=== PATIENT | female | born 1980 | race Two or more races ===

== ENCOUNTER 2018-12-01 12:30 | Emergency (ER) | payer MEDICAID ==
[~2018-12-01] VITALS: Ht 162.6 cm; Wt 86.2 kg
[2018-12-01 12:35] VITALS: BP 139/94
--- NOTE | 2018-12-01 12:43 | NUR ---
ED Nurse Note: Patient walked into ED c/o abdominal pain nausea and vomiting for 2weeks. patient reports her first day of her last mestrual period was September 23. She did urine test at home with positive result a weeek ago. patient reports . patient has twins and a daughter. patient is ambulatory steady gait, a/o x4, breathing unlabored and even. Patient placed in hospital gown.
--- NOTE | 2018-12-01 12:55 | NUR ---
ED Nurse Note: patient taken to [facility]
[2018-12-01] MEDS ORDERED: Metoclopramide 10mg/2ml Inj IVP ONE (13:00)
[2018-12-01 13:15] LABS: APPEARANCE,URINE CLEAR; BILIRUBIN, URINE 1+ (NEGATIVE); COLOR,URINE BROWN; GLUCOSE, URINE (UA) NEGATIVE (NEGATIVE); KETONES,URINE 2+ (NEGATIVE); LEUKOCYTE ESTERASE ,URINE 1+ (NEGATIVE); NITRITE,URINE NEGATIVE (NEGATIVE); PH,URINE 6 (4.5-8.0); PROTEIN,URINE 2+ (NEGATIVE); UROBILINOGEN,URINE 4 MG/DL (0.0-1.0)
[2018-12-01 13:16] LABS: EOSINOPHILS % (AUTO) 0.4 % (0.0-3.0); HEMATOCRIT 32.2 % (37.0-47.0); HEMOGLOBIN 10.1 G/DL (12.0-16.0); LYMPHOCYTES % (AUTO) 16.1 % (20.0-45.0); MEAN CORPUSCULAR VOLUME 81 FL (80-99); MONOCYTES % (AUTO) 7.2 % (1.0-10.0); NEUTROPHILS % (AUTO) 75.2 % (45.0-75.0); PLATELET COUNT 224 K/UL (150-450); RED BLOOD COUNT 3.96 M/UL (4.20-5.40); RED CELL DISTRIBUTION WIDTH 15.1 % (11.6-14.8); WHITE BLOOD COUNT 9.4 K/UL (4.8-10.8)
[2018-12-01 13:32] LABS: ANION GAP 10 mmol/L (5-15); BLOOD UREA NITROGEN 6 mg/dL (7-18); CALCIUM 9.2 MG/DL (8.5-10.1); CARBON DIOXIDE 25 MMOL/L (21-32); CHLORIDE 99 MMOL/L (98-107); CREATININE 0.7 MG/DL (0.55-1.30); POTASSIUM 2.9 MMOL/L (3.5-5.1); SODIUM 134 MMOL/L (136-145)
[2018-12-01 13:44] LABS: ALANINE AMINOTRANSFERASE 13 U/L (12-78); ALBUMIN 3.4 G/DL (3.4-5.0); ALBUMIN/GLOBULIN RATIO 0.7 (1.0-2.7); ALKALINE PHOSPHATASE 57 U/L (46-116); ASPARTATE AMINO TRANSFERASE 23 U/L (15-37); BILIRUBIN,TOTAL 0.3 MG/DL (0.2-1.0); CREATINE KINASE 116 U/L (26-308)
--- NOTE | 2018-12-01 13:57 | Emergency Room Report ---
History of Present Illness General Chief Complaint: Abdominal Pain Source: Patient Present Illness HPI 38-year-old female with history of heavy tobacco smoking and hypothyroidism currently taking levothyroxine, here complaining of 2 weeks of diffuse abdominal pain and multiple nonbloody emesis. Denies diarrhea, fever and chills. Patient reports that she took a test 1 week ago and did confirm her . Her last menstrual period was September 23, 2018. Denies vaginal bleeding, spotting, pelvic pain. Patient is G3, . This is her third . Patient reports that during her other 2 pregnancies she continues to smoke tobacco. Patient denies drug use however has positive amphetamine, benzodiazepine, and opiate tox screen. Denies chest pain, shortness of breath, palpitation, headache and dizziness. Patient has not started her vitamins and has not seen [facility] yet. Also reports history of anemia but does not take any ferrous sulfate. Allergies: Coded Allergies: PENICILLINS (Verified Allergy, Unknown, Nausea, 12/01/18) Patient History Past Medical History: see triage record Past Surgical History: unable to obtain Pertinent Family History: none Social History: Reports: smoking - tobacco Now: Yes Immunizations: UTD Reviewed Nursing Documentation: PMH: Agreed; PSxH: Agreed Nursing Documentation-PMH Past Medical History: No History, Except For Review of Systems All Other Systems: negative except mentioned in HPI Physical Exam Vital Signs Date Time Temp Pulse Resp B/P (MAP) Pulse Ox O2 Delivery O2 Flow Rate FiO2 12/01/18 12:35 98.2 91 17 139/94 100 Room Air Sp02 EP Interpretation: reviewed, normal General Appearance: normal inspection, well appearing, no apparent distress, alert, GCS 15 Head: normocephalic, atraumatic Eyes: bilateral eye normal inspection, bilateral eye PERRL ENT: normal ENT inspection, normal pharynx Neck: normal inspection, full range of motion, supple, no carotid bruits Respiratory: normal inspection, chest non-tender, lungs clear, normal breath sounds, no rhonchi, no respiratory distress Cardiovascular #1: normal inspection, normal peripheral pulses, regular rate, rhythm, no murmur, normal capillary refill Gastrointestinal: normal bowel sounds, non tender, soft, no organomegaly, no peritonitis, no bruit, no guarding, no hernia, no pulsatile mass, no rebound Rectal: deferred Genitourinary: no CVA tenderness Musculoskeletal: back normal, digits/nails normal Neurologic: normal inspection, alert, oriented x3 Psychiatric: normal inspection, judgement/insight normal, memory normal Skin: no rash Lymphatic: axilla node tender (R) Medical Decision Making PA Attestation All my diagnosis and treatment plans were reviewed ad discussed with my supervising physician Dr. Ruff Diagnostic Impression: Primary Impression: Intrauterine normal Additional Impressions: Fatty liver Substance abuse ER Course 38-year-old female with history of heavy tobacco smoking and hypothyroidism currently taking levothyroxine, here complaining of 2 weeks of diffuse abdominal pain and multiple nonbloody emesis. Denies diarrhea, fever and chills. Patient reports that she took a test 1 week ago and did confirm her . Her last menstrual period was September 23, 2018. Denies vaginal bleeding, spotting, pelvic pain. Patient is G3, . This is her third . Patient reports that during her other 2 pregnancies she continues to smoke tobacco. Patient denies drug use however has positive amphetamine, benzodiazepine, and opiate tox screen. Denies chest pain, shortness of breath, palpitation, headache and dizziness. Patient has not started her vitamins and has not seen [facility] [facility] yet. Also reports history of anemia but does not take any ferrous sulfate. Ddx considered but are not limited to: appendicitis, cholecystis, gastritis, gastroenteritis, UTI, pyelonephritis, SBO, diverticulitis, influenza with GI manifestation, TN, complication with , fatty liver Vital signs: are WNL, pt. is afebrile H&PE are most consistent with: fatty liver, IUP normal ORDERS: , EKG, abdominal US, reglan, vit, ferrous sulfate ED INTERVENTIONS: IV fluids, reglan, potassium, pepcid DISCHARGE: At this time pt. is stable for d/c to home. Will provide printed patient care instructions, and any necessary prescriptions. Care plan and follow up instructions have been discussed with the patient prior to discharge. Take medication as directed follow-up with your [facility] [employer] for further assessment avoid using benzodiazepines, opiates, tobacco smoke, amphetamine as are highly contraindicated during . Positive for benzodiazepines, opiates, amphetamine EKG Diagnostic Results Rate: normal Rhythm: NSR ST Segments: no acute changes CT/MRI/US Diagnostic Results CT/MRI/US Diagnostic Results #1: Imaging Test Ordered: OB US Impression Gestational age of 9 weeks and 6 days heart rate 170 no subchorionic hemorrhage noted CT/MRI/US Diagnostic Results #2: Imaging Test Ordered: Pelvic ultrasound Impression fatty liver Last Vital Signs Date Time Temp Pulse Resp B/P (MAP) Pulse Ox O2 Delivery O2 Flow Rate FiO2 12/01/18 12:35 98.2 91 17 139/94 (109) 100 Room Air Disposition: HOME, SELF-CARE Condition: Stable Scripts Metoclopramide Hcl* (REGLAN*) 10 Mg Tablet 10 MG ORAL THREE TIMES A DAY, #12 TAB Prov: Catalina Adams 12/01/18 Ferrous Sulfate* (FERROUS SULFATE*) 325 Mg Tablet 325 MG ORAL TWICE A DAY, #60 TAB 0 Refills Prov: Catalina Adams 12/01/18 Pnv Cmb#21/Iron/Folic Acid ( COMPLETE CAPLET) 1 Each Tablet 1 EACH PO DAILY, #30 TAB Prov: Catalina Adams 12/01/18 Patient Instructions: Abdominal Pain During , [id number], Fatty Liver, Substance Use Disorder Additional Instructions: Take your vitamins and your ferrous sulfate as directed follow-up with your [facility] [employer] avoid taking opiates, using benzodiazepines, and methamphetamine as it is highly contraindicated in . Avoid smoking tobacco. Increase oral hydration. Catalina Adams Dec 01, 2018 13:57
--- NOTE | 2018-12-01 14:27 | NUR ---
ED Nurse Note: patient came back from / S
--- NOTE | 2018-12-01 14:48 | Diagnostic Imaging Report ---
Indication: Abdominal pain Technique: Grayscale and duplex Doppler imaging of the abdomen performed. Comparison: None Findings: The liver is echogenic. Doppler interrogation of the main portal vein shows patency with hepatopedal, monophasic flow. There is no biliary ductal dilatation identified. Gallbladder is unremarkable. Sonographic Meredith's sign was negative per technologist. CBD is 2.5 mm. There demonstrated part of the pancreas, aorta and IVC show no definite abnormalities. Both kidneys appear unremarkable. There is no hydronephrosis. IMPRESSION: Fatty liver
--- NOTE | 2018-12-01 14:51 | Diagnostic Imaging Report ---
Indication: Pelvic pain. Positive Technique: Grayscale and duplex Doppler imaging of the pelvis performed utilizing a transabdominal scan and endovaginal scan. Comparison: None Findings: Single living IUP demonstrated gestational age 9 weeks +/- 6 days. Yolk sac and pole demonstrated. heart rate demonstrated. The ovaries are not visualized endovaginally. Dopplerable blood flow within the right ovary which is visualized transabdominally. Left ovary is not seen. There is no free fluid. IMPRESSION: Single living IUP 9 weeks gestational age.
[2018-12-01] MEDS ORDERED: PRENATAL COMPL1 EAC1 PO (15:01)
[2018-12-01] MEDS ORDERED: FERROUS SULFAT325 MG ORAL (15:01)
[2018-12-01] MEDS ORDERED: REGLAN10 MG ORAL (15:01)
[2018-12-01 15:11] VITALS: BP 139/94
--- NOTE | 2018-12-01 15:51 | NUR ---
ER DISCHARGE NOTE: Patient is cleared to be discharged per GAIL [facility]APLETON, pt is aox4, on room air, with stable vital signs. pt was given dc and prescription instructions, pt was able to verbalize understanding, pt id band and iv site removed without complications. pt is able to ambulate with steady gait. pt took all belongings.
== END 2018-12-01 15:11 | disposition home or self-care (01) ==
LOC: EMR 15:00
DX: O26.891 Other specified pregnancy related conditions, first trimester (principal); K76.0 Fatty (change of) liver, not elsewhere classified; O99.321 Drug use complicating pregnancy, first trimester; F15.10 Other stimulant abuse, uncomplicated; Z3A.09 9 weeks gestation of pregnancy; F11.10 Opioid abuse, uncomplicated; F13.10 Sedative, hypnotic or anxiolytic abuse, uncomplicated; O99.331 Smoking (tobacco) complicating pregnancy, first trimester; Z88.0 Allergy status to penicillin
CPT/HCPCS: 36415; 76700; 76801; 76830; 80053; 80307; 81001; 81025; 82550; 84443; 84484; 84702; 85025; 86850; 86900; 86901; 93005; 96361; 96374; 96375; 99284; J2765; S0028; J8499

== ENCOUNTER 2019-06-15 22:30 | Emergency (ER) | payer MEDICAID ==
[~2019-06-15] VITALS: Ht 162.6 cm; Wt 90.7 kg
[~2019-06-15 22:30] MED LIST: FERROUS SULFAT325 MG ORAL; PRENATAL COMPL1 EAC1 PO; REGLAN10 MG ORAL
[2019-06-15 22:50] VITALS: BP 141/91
--- NOTE | 2019-06-15 22:50 | NUR ---
ED Nurse Note: Pt walked into ED from home for c/o toothache onset two days ago. Pt states she has hx of abscess on R side back tooth and now pain has started from that surrounding area. Pt notes R sided tooth pain radiates into R bear. Pt is aaox4, no cardiac or respiratory distress noted.
[2019-06-15] MEDS ORDERED: CLINDAMYCIN HC300 MG ORAL (23:48)
[2019-06-15] MEDS ORDERED: NORCO 5-325 TA1 EACH ORAL (23:48)
--- NOTE | 2019-06-15 23:48 | Emergency Room Report ---
History of Present Illness General Chief Complaint: Toothache Source: Patient Present Illness HPI This is a 39-year-old female with very poor dentition. She has multiple tooth extractions in the past. She presents with chief complaint of dental pain. Onset for last couple days. No nausea no vomiting. Pain is 10 out of 10 pain radiated to her ear. Similar symptom in the past. She is supposed to have the tooth extracted but she is . She states she has to wait for delivery first. Denies any other complaint. No fever chills but no drainage. No swelling. Allergies: Coded Allergies: PENICILLINS (Verified Allergy, Unknown, Nausea, 12/01/18) Patient History Past Medical History: see triage record, old chart reviewed Past Surgical History: other Pertinent Family History: none Social History: Reports: smoking Last Menstrual Period: 09/21/19 Now: No : 3 Para: 2 Immunizations: other Reviewed Nursing Documentation: PMH: Agreed; PSxH: Agreed Nursing Documentation-PMH Past Medical History: No Stated History Review of Systems Eye: Denies: eye pain, blurred vision ENT: Denies: ear pain, nose congestion, throat swelling Respiratory: Denies: cough, shortness of breath Cardiovascular: Denies: chest pain, palpitations Gastrointestinal: Denies: abdominal pain, diarrhea, nausea, vomiting Musculoskeletal: Denies: back pain, joint pain Skin: Denies: rash Neurological: Denies: headache, numbness Endocrine: Denies: increased thirst, increased urine Hematologic/Lymphatic: Denies: easy bruising All Other Systems: negative except mentioned in HPI Physical Exam Vital Signs Date Time Temp Pulse Resp B/P (MAP) Pulse Ox O2 Delivery O2 Flow Rate FiO2 06/15/19 22:41 98.2 95 18 141/91 (108) 100 Room Air Vitals unremarkable Sp02 EP Interpretation: reviewed, normal General Appearance: well appearing, no apparent distress, alert Head: normocephalic, atraumatic Eyes: bilateral eye PERRL, bilateral eye EOMI ENT: hearing grossly normal, normal pharynx, other - Very poor dentition. She is missing most of her teeth. Her right lower lateral central incisor is decayed. No abscess. Neck: full range of motion, supple, no meningismus Respiratory: chest non-tender, lungs clear, normal breath sounds Cardiovascular #1: regular rate, rhythm, no murmur Gastrointestinal: normal bowel sounds, non tender, no mass, no organomegaly, no bruit, non-distended Musculoskeletal: back normal, normal range of motion, gait/station normal Psychiatric: mood/affect normal Procedures Additional Procedure Procedure Narrative Procedure: Dental block Indication: Dental pain Indication description: I injected 2 cc to the submental nerve and the inferior alveolar nerve. Patient felt better. Medical Decision Making Diagnostic Impression: Primary Impression: Toothache ER Course Patient with dental pain. No evidence of any abscess that can be I&D. Will discharge home. Last Vital Signs Date Time Temp Pulse Resp B/P (MAP) Pulse Ox O2 Delivery O2 Flow Rate FiO2 06/15/19 22:41 98.2 95 18 141/91 (108) 100 Room Air Status: improved Disposition: HOME, SELF-CARE Condition: Stable Scripts Hydrocodone Bit/Acetaminophen 5-325* (NORCO 5-325*) 1 Each Tablet 1 TAB ORAL Q6H PRN for For Pain, #10 TAB 0 Refills Prov: Ricci Pineda MD 06/15/19 Clindamycin Hcl (CLINDAMYCIN HCL) 300 Mg Capsule 300 MG ORAL THREE TIMES A DAY, #21 CAP Prov: Ricci Pineda MD 06/15/19 Referrals: [facility],REFERRING (PCP) Patient Instructions: Dental Pain Additional Instructions: Follow-up with a dentist KARISSA. Return if symptoms worsen. Ricci Pineda MD Jun 15, 2019 23:48
[2019-06-15 23:50] VITALS: BP 139/87
--- NOTE | 2019-06-15 23:50 | NUR ---
ER DISCHARGE NOTE: Patient is cleared to be discharged per ERMD, pt is aox4, on room air, with stable vital signs. pt was given dc and prescription instructions, pt was able to verbalize understanding, pt id band removed. pt is able to ambulate with steady gait. pt took all belongings.
== END 2019-06-16 00:04 | disposition home or self-care (01) ==
LOC: EMR 23:27
DX: K08.89 Other specified disorders of teeth and supporting structures (principal); Z88.0 Allergy status to penicillin; F17.200 Nicotine dependence, unspecified, uncomplicated
CPT/HCPCS: 64400; Z7502; 99282